=== PATIENT | female | born 1995 | race Caucasian/White ===

== ENCOUNTER 2017-10-19 19:15 | Emergency (ER) | payer SELFPAY ==
[~2017-10-19] VITALS: Ht 165.1 cm; Wt 93.9 kg
[2017-10-19 20:00] VITALS: BP 152/91
== END 2017-10-19 20:40 | disposition home or self-care (01) ==
LOC: ER 19:21
DX: M54.6 Pain in thoracic spine (principal)
CPT/HCPCS: 99283; A4606; Z7610